=== PATIENT | male | born 1945 | race Caucasian/White ===

== ENCOUNTER 2021-06-25 23:41 | Observation (INO) ==
[2021-06-26] MEDS ORDERED: GLUCAGON 1 MG VIAL IM PRN (01:50)
[2021-06-26] MEDS ORDERED: ONDANSETRON 4 MG/2 ML VIAL IV PRN (01:52)
[2021-06-26] MEDS ORDERED: hydrALAZINE 20 MG/1 ML VIAL IV PRN (01:52)
[2021-06-26] MEDS ORDERED: MORPHINE 2 MG/1 ML SYRINGE IV PRN (01:52)
[2021-06-26] MEDS ORDERED: ACETAMINOPHEN 325 MG TABLET PO PRN (01:52)
[2021-06-26] MEDS ORDERED: MAGNESIUM SULF RIDER 2 GM/50 ML PREMIX IV PRN (01:57)
[2021-06-26] MEDS ORDERED: MAGNESIUM SULF RIDER 4 GM/100 ML PREMIX IV PRN (01:57)
[2021-06-26] MEDS ORDERED: POTASSIUM CHLORIDE 20 MEQ TABLET PO PRN (01:57)
[2021-06-26] MEDS ORDERED: POTASSIUM CHLORIDE RIDER 10 MEQ/100 ML PREMIX IV PRN (01:57)
[2021-06-26] MEDS ORDERED: DEXTROSE 10% 250 ML BAG IV PRN (02:12)
[2021-06-26 02:29] LABS: Basophils % 0.2 % (0.0-0.8); Hematocrit 51.5 VOL% (42.0-52.0); Hemoglobin 17.1 GM/DL (14.0-18.0); Immature Granulocytes % 0.5 %; Immature Granulocytes Absolute 0.03 #; Lymphocytes # 0.5 10*3/uL (1.4-4.0); Lymphocytes % 9.1 % (21.2-54.2); Mean Corpuscular HGB Conc 33.2 GM/DL (32-36); Mean Corpuscular Volume 90.8 FL (87-102); Mean Platelet Volume 10.7 FL (9.6-12.0); Monocytes % 4.1 % (1.7-12.7); Neutrophils % 86.1 % (38.7-73.9); Platelet Count 167 T/CUMM (130-400); Red Blood Count 5.67 MC/CUMM (3.8-5.5); Red Cell Distribution Width 13.3 % (9.3-17.3); White Blood Count 5.6 T/CUMM (4-12)
[2021-06-26 02:58] LABS: Albumin 2.9 G/DL (3.4-5.0); Bilirubin,Total 0.7 MG/DL (0.20-1.00); Calcium 8.3 MG/DL (8.5-10.1); Osmolality,Calculated 269.2 MOS/KG (273-304); Potassium 3.4 MMOL/L (3.5-5.1); Risk Ratio 2.67; Thyroid Stimulating Hormone 1.28 uIU/ml (0.358-3.74); Total Protein 7.6 G/DL (6.4-8.2); VLDL Cholesterol 11.2 MG/DL
[2021-06-26 03:05] LABS: Ferritin 1160.2 ng/mL (26-388)
[2021-06-26] MEDS: DEXAMETHASONE 4 MG/1 ML VIAL IV SCH ×2 (03:35→08:03)
[2021-06-26] MEDS: PIPERACILLIN/TAZOBACTAM 3,375 MG in SODIUM CHLORIDE 0.9% 100 ML IV SCH ×3 (03:40→22:13)
[2021-06-26] MEDS ORDERED: REMDESIVIR 200 MG in SODIUM CHLORIDE 0.9% 210 ML IV ONE (04:00)
[2021-06-26 04:19] LABS: INR 1.2; Partial Thromboplastin Time 39.1 SECS (23.8-32.1)
[2021-06-26 05:42] LABS: ABG Base Excess 3.5 MMOL/L (-2.5-2.5); ABG HCO3 28.8 MMOL/L (20-26); ABG Oxygen Saturation 97.9 % (95-100); ABG PCO2 45.7 MM HG (35-48); ABG PH 7.417 (7.35-7.45); ABG PO2 106.7 MM HG (80-95); ABG TCO2 30.2 MMOL/L (23-27)
[2021-06-26] MEDS: ENOXAPARIN 100 MG/ML SYRINGE SUBCUT SCH ×2 (05:50→17:39)
[2021-06-26] MEDS: DOCUSATE SODIUM 100 MG CAPSULE PO SCH ×2 (08:03→22:12)
[2021-06-26] MEDS: ZINC GLUCONATE 50 MG TABLET PO SCH (08:03)
[2021-06-26] MEDS: CHOLECALCIFEROL 1,000 UNIT TABLET PO SCH (08:03)
[2021-06-26] MEDS: PANTOPRAZOLE 40 MG TABLET PO SCH (08:04)
[2021-06-26] MEDS: ASCORBIC ACID 500 MG TABLET PO SCH ×2 (08:04→22:12)
[2021-06-26] MEDS ORDERED: DEXAMETHASONE 4 MG/1 ML VIAL IV SCH (09:00)
[2021-06-26] MEDS ORDERED: FUROSEMIDE 40 MG/4 ML VIAL IV SCH (09:00)
[2021-06-26] MEDS ORDERED: POTASSIUM CHLORIDE 20 MEQ TABLET PO ONE (09:06)
[2021-06-26] MEDS: carvediloL 3.125 MG TABLET PO SCH ×2 (11:22→22:13)
[2021-06-27] MEDS: PIPERACILLIN/TAZOBACTAM 3,375 MG in SODIUM CHLORIDE 0.9% 100 ML IV SCH ×3 (04:30→21:08)
[2021-06-27 05:00] LABS: Basophils % 0.1 % (0.0-0.8); Hematocrit 50.2 VOL% (42.0-52.0); Hemoglobin 16.6 GM/DL (14.0-18.0); Immature Granulocytes % 0.8 %; Immature Granulocytes Absolute 0.07 #; Lymphocytes # 0.5 10*3/uL (1.4-4.0); Lymphocytes % 6.2 % (21.2-54.2); Mean Corpuscular HGB Conc 33.1 GM/DL (32-36); Mean Corpuscular Volume 90.6 FL (87-102); Monocytes % 3.2 % (1.7-12.7); Neutrophils % 89.7 % (38.7-73.9); Platelet Count 177 T/CUMM (130-400); Red Blood Count 5.54 MC/CUMM (3.8-5.5); Red Cell Distribution Width 13.2 % (9.3-17.3); White Blood Count 8.6 T/CUMM (4-12)
[2021-06-27 05:15] LABS: Calcium 7.9 MG/DL (8.5-10.1); Osmolality,Calculated 277.1 MOS/KG (273-304); Potassium 3.8 MMOL/L (3.5-5.1)
[2021-06-27] MEDS: ENOXAPARIN 100 MG/ML SYRINGE SUBCUT SCH (05:54)
[2021-06-27] MEDS ORDERED: ASPIRIN EC 325 MG TABLET PO SCH (09:00)
[2021-06-27] MEDS: DEXAMETHASONE 4 MG/1 ML VIAL IV SCH (09:38)
[2021-06-27] MEDS: ASPIRIN EC 81 MG TABLET PO SCH (09:39)
[2021-06-27] MEDS: ASCORBIC ACID 500 MG TABLET PO SCH ×2 (09:39→21:08)
[2021-06-27] MEDS: CHOLECALCIFEROL 1,000 UNIT TABLET PO SCH (09:39)
[2021-06-27] MEDS: REMDESIVIR 100 MG in SODIUM CHLORIDE 0.9% 100 ML IV SCH (09:39)
[2021-06-27] MEDS: DOCUSATE SODIUM 100 MG CAPSULE PO SCH ×2 (09:39→21:08)
[2021-06-27] MEDS: carvediloL 6.25 MG TABLET PO SCH ×2 (09:39→21:08)
[2021-06-27] MEDS: PANTOPRAZOLE 40 MG TABLET PO SCH (09:39)
[2021-06-27] MEDS: APIXABAN 5 MG TABLET PO SCH ×2 (09:40→21:08)
[2021-06-27] MEDS: ZINC GLUCONATE 50 MG TABLET PO SCH (09:40)
[2021-06-28 03:51] VITALS: BP 117/84
[2021-06-28] MEDS: PIPERACILLIN/TAZOBACTAM 3,375 MG in SODIUM CHLORIDE 0.9% 100 ML IV SCH (04:18)
[2021-06-28] MEDS: REMDESIVIR 100 MG in SODIUM CHLORIDE 0.9% 100 ML IV SCH (09:21)
[2021-06-28] MEDS: DEXAMETHASONE 4 MG/1 ML VIAL IV SCH (09:21)
[2021-06-28] MEDS: carvediloL 6.25 MG TABLET PO SCH (09:22)
[2021-06-28] MEDS: CHOLECALCIFEROL 1,000 UNIT TABLET PO SCH (09:22)
[2021-06-28] MEDS: ZINC GLUCONATE 50 MG TABLET PO SCH (09:22)
[2021-06-28] MEDS: ASCORBIC ACID 500 MG TABLET PO SCH (09:22)
[2021-06-28] MEDS: DOCUSATE SODIUM 100 MG CAPSULE PO SCH (09:22)
[2021-06-28] MEDS: ASPIRIN EC 81 MG TABLET PO SCH (09:22)
[2021-06-28] MEDS: APIXABAN 5 MG TABLET PO SCH (09:22)
[2021-06-28] MEDS: PANTOPRAZOLE 40 MG TABLET PO SCH (09:22)
== END 2021-06-28 13:05 | disposition home health service (06) ==
LOC: N.TELEN → SUATTDRO 06-26 01:56
PROVIDERS: ADMIT Internal Medicine; ATTEND Internal Medicine